=== PATIENT | male | born 2000 | race Native Hawaiian/Other Pacific Islander ===

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

== ENCOUNTER 2022-08-24 14:33 | Emergency (ER) | payer OTHER ==
[~2022-08-24] VITALS: Ht 172.7 cm; Wt 61.2 kg
[2022-08-24 14:40] VITALS: BP 113/51; TEMP 98
== END 2022-08-24 16:10 | disposition home or self-care (01) ==
LOC: ED 14:33
DX: R10.84 Generalized abdominal pain (principal)
CPT/HCPCS: 81002; 99282